=== PATIENT | male | born 1975 | race African-American/Black ===

== ENCOUNTER → 2020-02-28 | Outpatient (CLI) | LOC: LABNPT 06:07 | PROVIDERS: ATTEND Surgery | DX: Z20.828 Contact with and (suspected) exposure to other viral communicable diseases (principal); Z53.9 Procedure and treatment not carried out, unspecified reason ==

== ENCOUNTER → 2021-03-30 | Outpatient (CLI) | payer BC ==
[~2021-03-30] MED LIST: CATHETER FLUSH 10 ML SYR IV PRN; HOLD METFORMIN - RECEIVED CONTRAST 20 ML VIAL IV SCH; IOHEXOL 350 MG/ML 100 ML (OMNIPAQUE 350) VIAL IV ONE; NS 100 ML (IVPB) BAG IV ONE
--- NOTE | 2021-03-30 09:35 | Diagnostic Imaging Report ---
PROCEDURE: CT chest, abdomen, and pelvis with and without contrast. TECHNIQUE: Precontrast images were obtained of the chest, abdomen, and pelvis. Multiple contiguous axial images were obtained through the chest, abdomen, and pelvis after administration of intravenous contrast. Auto Exposure Controls were utilized during the CT exam to meet ALARA standards for radiation dose reduction. INDICATION: Colonic adenocarcinoma, prior colonic resection. COMPARISON: None available. FINDINGS: No significant adenopathy within the chest. No aneurysmal dilatation of the thoracic aorta with minimal scattered vascular calcifications present. The heart is within normal limits in size. No significant pericardial effusion. No pleural effusion. No pneumothorax. The trachea is patent. 0.4 cm right upper lobe pulmonary nodule, series 5, image 60. The lungs are otherwise clear. Scattered osseous degenerative changes without acute osseous abnormality. The liver and spleen are unremarkable. The adrenal glands are unremarkable. The pancreas is unremarkable. The gallbladder is unremarkable. Punctate nonobstructing bilateral renal calculi. Right renal cyst and additional tiny hypodensity within the left kidney which is too small to completely characterize. Mild scattered vascular calcifications without aneurysmal dilatation of the abdominal aorta. The urinary bladder is unremarkable. A wide neck umbilical hernia is present containing portions of unobstructed large and small bowel. Post surgical changes of a right hemicolectomy with anastomosis identified involving the mid transverse colon. No bowel obstruction or pneumatosis. No significant adenopathy, free air, or free fluid within the abdomen or pelvis. Partial ankylosis of the bilateral sacroiliac joints. Mild scattered osseous degenerative changes without acute osseous abnormality. IMPRESSION: Post surgical changes of a right hemicolectomy without evidence of metastatic disease within the abdomen or pelvis. Indeterminate tiny 0.4 cm right upper lobe pulmonary nodule. A followup CT of the chest is recommended in 1 year if no prior imaging is available to demonstrate greater than 2 years of stability for this pulmonary nodule. Punctate nonobstructing bilateral renal calculi. Dictated by: Dictated on workstation # [id number]
== END ==
LOC: RAD 08:35
PROVIDERS: ATTEND Surgery
DX: C18.9 Malignant neoplasm of colon, unspecified (principal); N20.0 Calculus of kidney; R91.1 Solitary pulmonary nodule
CPT/HCPCS: 71270; 74178

== ENCOUNTER → 2021-07-08 | Outpatient (CLI) | payer BC | LOC: CARD 13:00 | PROVIDERS: ATTEND Internal Medicine Cardiovascular Disease | DX: I35.1 Nonrheumatic aortic (valve) insufficiency (principal); I10 Essential (primary) hypertension; I25.10 Atherosclerotic heart disease of native coronary artery without angina pectoris | CPT/HCPCS: 93306 ==

== ENCOUNTER → 2021-08-02 | Outpatient (CLI) | payer BC ==
[~2021-08-02] MED LIST changes: -CATHETER FLUSH 10 ML SYR IV PRN; +CATHETER FLUSH 10 ML SYR IVP PRN; -HOLD METFORMIN - RECEIVED CONTRAST 20 ML VIAL IV SCH; -IOHEXOL 350 MG/ML 100 ML (OMNIPAQUE 350) VIAL IV ONE; -NS 100 ML (IVPB) BAG IV ONE
[2021-08-02 09:39] VITALS: BP 152/98
[2021-08-02 09:49] VITALS: BP 217/63
[2021-08-02 09:52] VITALS: BP 167/85
--- NOTE | 2021-08-02 11:17 | Cardiology Stress Test Report ---
Stress Test Report Date of Procedure/Referring: Date of Procedure: Aug 02, 2021 PCP Renato Dukes MD Admitting Physician No,Local Physician Indications: HTN Baseline Heart Rate: 67 Baseline Blood Pressure: Blood Pressure Systolic: 167 Blood Pressure Diastolic: 85 Vital Signs Date Time Temp Pulse Resp B/P (MAP) Pulse Ox O2 Delivery O2 Flow Rate FiO2 08/02/21 09:39 67 18 152/98 (116) 08/02/21 09:49 Room Air Baseline Vital Signs Vital Signs Date Time Temp Pulse Resp B/P (MAP) Pulse Ox O2 Delivery O2 Flow Rate FiO2 08/02/21 09:39 67 18 152/98 (116) 08/02/21 09:49 Room Air Baseline EKG: Baseline EKG: NSR Summary: After explaining the procedure and details to the patient, he signed the consent and was brought to the stress nuclear laboratory. Patient exercised on standard Gabriel protocol, EKG, heart rate and blood pressure were monitored continuously, resting and stress doses of radio tracer were injected, imaging was acquired and reviewed in the short axis, horizontal long axis and vertical long axis views Patient was able to exercise for a total of 9 minutes on Gabriel protocol, METs 10.3 Maximum heart rate 151 Maximum blood pressure 248/85 Stress EKG, Minimal nondiagnostic changes Recovery EKG, Return to baseline TID: 1.05 SSS: 6 SDS: 6 EF: 47 Conclusion: 1. Good exercise tolerance for a total of 9 minutes on standard Gabriel protocol, 10.3 METS achieving 87% of maximal expected heart rate 2. Appropriate heart rate response to exercise with hypertensive response to exercise with peak blood pressure 248/85 return to baseline during recovery 3. Nondiagnostic EKG changes with exercise return to baseline during recovery 4. Reversible ischemia involving the mid to apical anterior wall and an terolateral wall 5. Normal left ventricular size, EF 47% RENATO DUKES MD Aug 02, 2021 11:17
== END ==
LOC: CARD 08:30
PROVIDERS: ATTEND Internal Medicine Cardiovascular Disease
DX: I10 Essential (primary) hypertension (principal); I25.10 Atherosclerotic heart disease of native coronary artery without angina pectoris
CPT/HCPCS: 78452; 93017; A9502

== ENCOUNTER 2021-08-06 06:55 | Day surgery (SDC) | payer BC ==
[~2021-08-06] VITALS: Ht 182 cm; Wt 119.2 kg
[2021-08-06] VITALS (9 sets, daily range): BP systolic 107–148; BP diastolic 74–98
[2021-08-06] MEDS ORDERED: HEParin (CATH LAB) 2,000 ML IV ONE (06:59)
[2021-08-06] MEDS ORDERED: LIDOCAINE 1% INJ 50 ML (XYLOCAINE) VIAL ONE (06:59)
[2021-08-06] MEDS ORDERED: NS IV 1000 ML 1,000 ML ONE (06:59)
[2021-08-06] MEDS ORDERED: NS IV 1000 ML 1,000 ML IV SCH ×2 (07:00→09:00)
[2021-08-06] MEDS ORDERED: LISI1TAB46 PO (07:36)
--- NOTE | 2021-08-06 07:49 | Diagnostic Imaging Report ---
INDICATION: Abnormal stress test. Single AP view of chest is obtained. COMPARISON: No previous study is available for comparison at this time. FINDINGS: Heart size and pulmonary vasculature are within normal limits, and the lungs are clear, bilaterally. IMPRESSION: Unremarkable chest. Dictated by: Dictated on workstation # [id number]
[2021-08-06] MEDS ORDERED: VERAPAMIL 5 MG/2 ML (CALAN) VIAL IV ONE (08:21)
[2021-08-06] MEDS ORDERED: HEParin 1000 UNIT/ML (10ML VIAL) FOR BOLUS ONE (08:22)
[2021-08-06] MEDS ORDERED: fentaNYL INJ 100 MCG/2 ML AMP ONE (08:22)
[2021-08-06] MEDS ORDERED: MIDAZOLAM 5 MG/5 ML (VERSED) VIAL ONE (08:22)
[2021-08-06] MEDS ORDERED: NITRO DRIP 25000 MCG/D5W 250 ML IV ONE (08:22)
--- NOTE | 2021-08-06 08:28 | Conscious Sedation/ASA ---
Conscious Sedation Pre-Proced Time 08:28 ASA Score 3 For ASA 3 and 4: Consider anesthesia and medical clearance. Also, for patients with a history of failed moderate sedation consider anesthesia. Airway Lungs Heart ASA score ASA 1: a normal healthy patient ASA 2: a patient with a mild systemic disease (mid diabetes, controlled hypertension, obesity x ASA 3: a patient with a severe systemic disease that limits activity (angina, COPD, prior Myocardial infarction) ASA 4: a patient with an incapacitating disease that is a constant threat to life (CHF, renal failure) ASA 5: a moribund patient not expected to survive 24 hrs. (ruptured aneurysm) ASA 6: a declared brain- patient whose organs are being harvested. For emergent operations, add the letter E after the classification Mallampati Classification Grade 3 Sedation Plan Analgesia, Amnesia, Plan communicated to team members, Discussed options with patient/fam, Discussed risks with patient/fam The patient is an appropriate candidate to undergo the planned procedure, sedation, and anesthesia. The patient immediately re-assessed prior to indication. RENATO WEATHERS MD Aug 06, 2021 08:28
[2021-08-06 08:51] LABS: HEMATOCRIT 50 % (40-54); MEAN CORPUSCULAR HEMOGLOBIN 27 pg (25-34); MEAN CORPUSCULAR HGB CONC 32 g/dL (32-36); MEAN CORPUSCULAR VOLUME 85 fL (80-99); MEAN PLATELET VOLUME 10.9 fL (9.0-12.2); PLATELET COUNT 210 10^3/uL (130-400); WHITE BLOOD COUNT 5.7 10^3/uL (4.3-11.0)
[2021-08-06 08:52] LABS: BILIRUBIN,URINE NEGATIVE (NEGATIVE); CLARITY,URINE CLEAR; COLOR,URINE YELLOW; GLUCOSE, URINE (UA) NEGATIVE (NEGATIVE); KETONES,URINE NEGATIVE (NEGATIVE); LEUKOCYTE ESTERASE ,URINE NEGATIVE (NEGATIVE); NITRITE,URINE NEGATIVE (NEGATIVE); PROTEIN,URINE NEGATIVE (NEGATIVE)
--- NOTE | 2021-08-06 08:58 | Discharge Inst-Post CATH ---
Discharge Inst-CATH/EP Problems Reviewed?: Yes Post Cardiac Cath/EP D/C Inst Follow Up/Plan Appointment with Dr. Dukes's office in 2 to 4 weeks <b>CARDIAC CATH/EP PROCEDURE DISCHARGE INSTRUCTIONS</b> ACTIVITY * Go Home directly and rest. * Limit activity of the leg (or wrist if it was used) for 7 days including aer obics, swimming, jogging, bicycling, etc. * Restrict stair-climbing for 7 days if possible, if not, climb up with your non-cath leg, then bring together on the same step. * Avoid lifting, pushing, pulling or excessive movement of the affected extremi ty for 7 days. * Customary sexual activity may be resumed after 2 days-use caution not to use a position that strains or causes pain to the affected extremity. * No driving for 24 hours. * NO SMOKING. * Avoid straining for bowel movements for 7 days. * Gentle walking on level ground is allowed. * Returning to work will depend on the type of procedure and the results. Your doctor will discuss this with you. CALL YOUR DOCTOR FOR ANY OF THE FOLLOWING: *If bleeding from the puncture site occurs- Apply gentle pressure to site with clean cloth and call your doctor or EMS. * If a knot or lump forms under the skin, increases in size, or causes pain. * If bruising appears to be worsening or moving further down your leg instead of disappearing. * Temperature above 101 F. CARE OF YOUR GROIN INCISION; * Bruising or purple discoloration of the skin near the puncture site is common. * You may shower only, no bathtub bathing for 5 days. Be careful to avoid slipping as your leg may feel stiff. * If a closure device was used on your femoral artery, please see the attached guide regarding care of the device and your leg. * Leave dressing on FOR 24 hours. CARE OF YOUR WRIST INCISION; * Bruising or purple discoloration of the skin near the puncture site is common. * You may shower. * DO NOT submerge wrist. * Leave dressing on FOR 24 hours. RENATO DUKES MD Aug 06, 2021 08:58
--- NOTE | 2021-08-06 09:03 | Cardiac Cath Report ---
Cardiac Cath Report Physician (s)/Skinning Machine Feeder (s) Physician RENATO WEATHERS MD Pre-Procedure Diagnosis Pre-Procedure Diagnosis: Chest pain Post-Procedure Note Procedure Start Date: Aug 06, 2021 Name of Procedure: Left heart catheterization Findings/Procedure Note PROCEDURE NOTE: 46 years old gentleman with chest pain, have an abnormal stress test, scheduled for cardiac catheterization possible PTCA. After explaining the procedure to the patient, all pros and cons were explained, all questions were answered. The patient signed the consent and then he was placed on the cardiac catheterization laboratory. Groin was prepped SL fashion local anesthesia was used. Sheath placed in the right radial artery, [place] catheter was advanced to the left ventricular cavity, pressure was measured, engaged the right and left coronary system, angiogram was done. At the end of the procedure the sheath was removed. Vascular band was used FINDINGS: Hemodynamics LV 138/16, end-diastolic pressure of 16 Aorta 132/96 mean of 115 ANATOMY: Left Main is free of obstructive disease Left Anterior Descending has no significant obstructive disease Left Circumflex has no significant obstructive disease Right Coronary Artery is dominant artery with mild disease nonobstructive dis ease LV Gram was not done, pressure was measured CONCLUSION: 1. Mild coronary artery disease nonobstructive disease 2. Normal left ventricular end-diastolic pressure DISCUSSION AND RECOMMENDATION: Stress test is falsely positive, patient has nonobstructive disease in the coronary system Anesthesia Type: Conscious Sedation Estimated blood loss (mL): 10 ml Contrast Amount: 40 ml Total Radiation Dose: 404 mGy Post-Procedure Diagnosis Post-operative diagnosis: Chest pain Coronary artery disease Hypertension RENATO WEATHERS MD Aug 06, 2021 09:03
[2021-08-06 09:11] LABS: BACTERIA,URINE NEGATIVE /HPF; SQUAMOUS EPITHELIAL CELL,UR RARE /HPF
== END 2021-08-06 12:00 | disposition home or self-care (01) ==
LOC: CATH 06:55 → CSD 09:03 → CATH 12:00
PROVIDERS: ATTEND Internal Medicine Cardiovascular Disease
DX: I25.10 Atherosclerotic heart disease of native coronary artery without angina pectoris (principal); I10 Essential (primary) hypertension; G47.33 Obstructive sleep apnea (adult) (pediatric); E78.2 Mixed hyperlipidemia; I44.4 Left anterior fascicular block; M48.00 Spinal stenosis, site unspecified; Z90.49 Acquired absence of other specified parts of digestive tract; Z99.89 Dependence on other enabling machines and devices; Z83.3 Family history of diabetes mellitus; Z80.0 Family history of malignant neoplasm of digestive organs
CPT/HCPCS: 71045; 81000; 85027; 85610; 85730; 87081; 93005; 93458; C1894; 36415